=== PATIENT | female | born 1945 ===

== ENCOUNTER 2025-01-22 18:18 | Emergency (ER) | payer MEDICARE ==
[2025-01-22 18:31] LABS: BASOPHILS ABSOLUTE AUTO 0.04 K/uL (0.00-0.10); BASOPHILS PERCENT AUTO 0.5 % (0.1-1.3); EOSINOPHILS ABSOLUTE AUTO 0.34 K/uL (0.00-0.40); EOSINOPHILS PERCENT AUTO 4.3 % (0.0-5.4); IMMATURE GRAN PERCENT AUTO 0.3 % (0.0-0.7); LYMPHOCYTES ABSOLUTE AUTO 1.67 K/uL (0.8-3.3); LYMPHOCYTES PERCENT AUTO 20.9 % (11.4-47.7); MONOCYTES ABSOLUTE AUTO 0.87 K/uL (0.20-0.90); MONOCYTES PERCENT AUTO 10.9 % (3.3-12.6); NEUTROPHILS ABSOLUTE AUTO 5.06 K/uL (1.0-7.6); NEUTROPHILS PERCENT AUTO 63.1 % (40.0-78.1); PLATELET COUNT,PLT 218 K/uL (130-375); RED BLOOD CELL COUNT 4.53 M/uL (3.77-5.24); WHITE BLOOD CELL COUNT,WBC 8.0 K/uL (3.2-11.0)
[2025-01-22 18:35] LABS: IMMATURE GRAN ABSOLUTE AUTO 0.02 K/uL (0.00-0.23)
[2025-01-22 18:56] LABS: ALANINE AMINOTRANSFERASE,ALT 40 U/L (12-78); ASPARTATE AMNIOTRANSFERASE,AST 45 U/L (15-37); BILIRUBIN TOTAL 0.7 mg/dL (0.2-1.0); BLOOD UREA NITROGEN,BUN 12 mg/dL (7-18); CARBON DIOXIDE,CO2 29 mmol/L (21-32); CHLORIDE,CL 103 mmol/L (100-108); CREATININE 1.0 mg/dL (0.6-1.0); EST CRCL DRUG DOSING (CG) 32.77 mL/min; ESTIMATED GFR 57 mL/min (>60); GLUCOSE RANDOM 125 mg/dL (74-106); POTASSIUM,K 4.3 mmol/L (3.6-5.2); PROTEIN TOTAL,TP 7.6 g/dL (6.4-8.2); SODIUM,NA 140 mmol/L (140-148); TROPONIN I HIGH SENSITIVITY 25.6 pg/mL (<=60.3)
[2025-01-22 18:59] LABS: A/G RATIO 1.0 (1.2-2.2)
[2025-01-22] MEDS: Sodium Chloride 0.9% 10 ML Syringe FLUSH ONE (19:41)
[2025-01-22] MEDS: Iopamidol 755 Mg/ML 100 ML Bottle IV ONE (19:41)
== END 2025-01-22 21:45 | disposition home or self-care (01) ==
LOC: JP.ED 18:18
DX: R07.89 Other chest pain (principal); Z88.5 Allergy status to narcotic agent; Z79.01 Long term (current) use of anticoagulants; Z79.899 Other long term (current) drug therapy
CPT/HCPCS: 36415; 71045; 71275; 80053; 84484; 85025; 85379; 93005; 99285; Q9967